=== PATIENT | female | born 1980 | race Caucasian/White ===

== ENCOUNTER 2022-05-11 16:41 | Inpatient (IN) | payer MEDICARE, MEDICAID, SELFPAY ==
[2022-05-11] VITALS (15 sets, daily range): BP systolic 141–168; BP diastolic 67–96; PULSE 57–145; RESP 14–16; O2SAT 99–100
--- NOTE | 2022-05-11 15:43 | US_ITS ---
WS: [id number] BIOPHYSICAL PROFILE AMNIOTIC FLUID HISTORY: 01/06 bpp in office COMPARISON: 04/09/2022 Cardiac activity: 150 bpm. Cervix: Obscured by the head. Placenta: Posterior, no previa or abruption. Placenta grade: 2 Parameters are as follows: Breathin Movement: 2 Tone: 2 Fluid volume: 2 Amniotic fluid index: 20 cm. Quality of this examination is significantly limited by maternal body habitus and late gestational ag e. There is increased low attenuation surrounding the abdomen and also the extremities. Sonogra pher was concerned this may be edema. I also believe this may be simply be fat. US/US OB BPP wo NST 76258 IMPRESSION: 1. Biophysical profile score: 8/8. 2. Normal amniotic fluid index. 3. Increased low-attenuation around the abdomen and the extremities. Favo r fat versus subcutaneous edema. Difficult evaluation due to maternal body habi tus and late gestational age.
--- NOTE | 2022-05-11 16:47 | P.HP_ITS ---
Providers/Chief Complaint Admitting Physician: Brennen Light MD Chief Complaint: BPP 2 sent from office HPI DATACAP DEVELOPER History of Present Illness Genny Gonsalez is a 41 year old 7 para 1-0-5-0 female at 36 weeks EGA female with type 2 diabetes who presented to our office for a scheduled biophysical profile. The was noted to have a 2 out of 8 biophysical profile, but was also noted to have some edema of the extremities. In the hospital, an NST was performed which found heart tones with a baseline of 140s to 150 with good long-term and short-term variability. With no significant dec elerations were noted. With Bronson accelerations noted. An ultrasound was performed at the hospital which demonstrated an 8 out of 8 biophysical profile, but the respiratory care technician noted that other than 1 brief moment, the baby would have had a 2 out of 8 biophysical profile. Possible edema was also noted on the ultrasound. Review of Systems General: Reports: 10 or more systems reviewed and unremarkable except in HPI and below Const: Reports: fatigue; Denies: fever(s) Eyes: Denies: change in vision Card: Denies: chest pain Musc: Reports: back pain Jose D/Lymph: Denies: easy bruising Medications/Allergies Allergies Allergy/AdvReac Type Severity Reaction Status Date / Time hydrocodone Allergy ALGY-Rash Verified 05/11/22 17:05 NSAIDS (Non-Steroidal AdvReac Mild ALGY-Rash Verified 05/11/22 17:05 Anti-Inflamma tape medical Allergy ALGY-Rash Uncoded 05/11/22 17:05 Physical Exam Const: COMMON NORMALS: patient oriented x3 and alert HENMT: COMMON NORMALS: moist oral mucous membranes HEAD & SCALP: normal to inspection Chest: COMMONS NORMALS: normal inspection of the chest Resp: COMMON NORMALS: clear to auscultation bilaterally AUSCULTATION: clear to auscultation bilaterally Cardio: COMMON NORMALS: regular rate and regular rhythm RATE: regular rate RHYTHM: regular rhythm GI: INSPECTION: Yes normal to inspection and Yes other (Gravid) Extremity: COMMON NORMALS: negative for normal to inspection (Bilateral below the knee amputation) GENERAL: Yes edema (Trace) Neuro: COMMON NORMALS: patient oriented x3, moves all extremities and no sensory deficits noted SENSORIUM/ORIENTATION: Yes alert Psych: COMMON NORMALS: mental status grossly normal Skin: COMMON NORMALS: no rashes or lesions noted GENERAL SKIN EXAM: no rash es or lesions noted Data : 05/12/22 09:35 05/11/22 16:36 A&P Assessment and plan (1) H/O gastric sleeve: Status: Acute (2) History of below-knee amputation of both lower extremities: Status: Acute (3) Type 2 diabetes mellitus affecting , antepartum: Status: Acute (4) 36 weeks gestation of : Status: Acute (5) Edema of fetus: I discussed the case with maternal- medicine in [place], and given the concerning biophysical profile they felt that we should proceed with delivery here in [place] and transfer the baby as needed. Since the patient may have edema, it is unlikely vaginal delivery will be successful. We will proceed with a section prior to bring the baby in distress. Status: Acute Attestations Medical Necessity Statement*: Routine and post care. Coding Level of Care Code Acute Fuel Operator for Chg Fwd Exam Comprehensive Diagnoses H/O gastric sleeve Z90.3 History of below-knee amputation of both lower extremities Z89.511; Z89.512 Type 2 diabetes mellitus affecting , antepartum O24.119 36 weeks gestation of Z3A.36 Edema of fetus
[2022-05-11] MEDS: metoclopramide 5 mg/mL SDV 2 mL 10 MG IVP (16:48)
[2022-05-11] MEDS: citric acid-sodium citrate 30 mL UDC PO (16:49)
[2022-05-11] MEDS: famotidine 20 mg/2 mL INJ IVP (16:49)
[2022-05-11] MEDS: lactated ringers 1,000 ML 999 ML IV (16:49)
[2022-05-11 17:25] LABS: Basophils % 0.4 %; Eosinophils # 0.1 10^3/uL (0.0-0.8); Eosinophils % 1.3 %; Hematocrit 30.3 % (37.0-47.0); Hemoglobin 9.8 g/dL (11.5-15.3); Lymphocytes # 2.4 10^3/uL (0.8-4.8); Lymphocytes % 28.1 %; Mean Corpuscular HGB Conc 32.3 g/dL (30.0-36.0); Mean Corpuscular Hemoglobin 28.1 pg (28.0-34.0); Mean Corpuscular Volume 86.8 fl (81-99); Mean Platelet Volume 11.8 fL (7.4-10.4); Monocytes # 0.4 10^3/uL (0.2-0.9); Monocytes % 5.2 %; Neutrophils # 5.42 10^3/uL (1.8-7.7); Neutrophils % 64.4 %; Nucleated Red Blood Cells % 0 %; Platelet Count 201 10^3/cmm (130-400); Red Blood Count 3.49 10^6/uL (4.1-5.3); Red Cell Distribution Width 15.9 % (12.1-15.1); White Blood Count 8.4 10^3/uL (4.0-10.0)
[2022-05-11 17:28] LABS: Alanine Aminotransferase 10 U/L (0-33); Albumin Level 3.1 g/dL (3.5-5.2); Alkaline Phosphatase 113 IU/L (35-105); Anion Gap 16.9 (5-19); Aspartate Amino Transferase 17 U/L (0-32); Blood Urea Nitrogen 13 mg/dL (6-20); Calcium 8.5 mg/dL (8.5-10.5); Carbon Dioxide 20 mmol/L (22-29); Chloride 102 mmol/L (98-107); Globulin 3.5 g/dL (1.3-4.6); Glomerular Filtration Rate 110.7 mL/min (90-130); Glucose 156 mg/dL (65-115); Osmolality Calculated 283 mOsm/kg (285-295); Potassium 3.9 mmol/L (3.5-5.1); Sodium 135 mmol/L (136-145); Total Bilirubin 0.4 mg/dL (0.15-1.2); Total Protein 6.6 g/dL (6.6-8.7)
[2022-05-11 17:59] LABS: Slide Review Slide Review Perform
--- NOTE | 2022-05-11 18:56 | PM.NBADM ---
[place] Information [place] information: Delivery Date: 05/11/22 Score Comment: 8 and 9 Other Information: This is a 36 weeks gestation female born to a 41-year-old via primary section for BPP 01/06. The was complicated by uncontrolled DM II, AMA, and polyhydramnios. The infant had spontaneous cry at with good color and tone. Apgars were 8 and 9. 6 mL of clear fluid were DeLee suctioned and the 's lung sounds continued to remain coarse with rhonchi. Chest PT was performed. At 11 minutes of life the infant's oxygen saturation was around 87% on room air and she began showing some slight subcostal retractions. She was started on CPAP and required titration to an FiO2 of 30% to get oxygen saturation to 93%. She continued to have coarse lung sounds. She was transferred to the nursery for further care. In the nursery she was placed on CPAP with a PEEP of 5 and FiO2 of 28%. She was breathing calm and comfortably with that setting. She had brief tremor (5sec) most notable in LLE and a blood sugar was checked and found to be 21. She was given 2 mL of glucose gel while IV access was obtained. She has been placed on D10 at 11 mL and hour. Blood culture, cbc w manual diff, cmp and chest xray have been ordered. [place] Exam General: healthy appearing, strong cry and Acrocyanosis present Head/Neck: normocephalic, anterior fontanelle normal, posterior fontanelle normal and face symmetric Eyes: spontaneous eye opening, eyes symmetric and red reflex present bilaterally ENT: external ears normal, palate normal and Normal oral and palatal mucosa present Chest: normal inspection of the chest Resp: breath sounds equal bilaterally, rhonchi and No grunting Cardio: regular rate & rhythm, No Murmur heart sound present, femoral pulses present and capillary refill normal GI: 3-vessel umbilical cord, Soft to palpation, non-distended, no organomegaly and no masses : normal external appearance Anus: patent anus Trunk/Spine: spine normal Extremites: negative hip click bilaterally, Ortolani and Toure signs negative bilaterally and moves all extremities Neuro/Reflexes: normal tone and normal reflexes Skin: no jaundice Coding Level of Care Code Acute Public Health Clinical Nurse Specialist for [facility] [place]
--- NOTE | 2022-05-11 18:57 | P.ANESASSM_ITS ---
Pre-Anesthetic Assessment Height/Weight: Resp 15 05/11/22 15:40 C/S Familial anesthetic complications: None Was Beta Leatha taken within 24 hours: N/A Was Clonidine taken within 24 hours: N/A Social No alcohol and No tobacco Exam alert, oriented x 3, clear to auscultation bilaterally and regular rate & rhythm Airway Submandibular: within normal limits Cervical ROM: within normal limits Mallampati: Class II Dentition: full Metabolic Diabetes Mellitus and Hyperlipidemia Anesthetic Plan ASA status: 2 Anesthesia: Regional (specify below) (SAB) Medications/Allergies Allergies Allergy/AdvReac Type Severity Reaction Status Date / Time hydrocodone Allergy ALGY-Rash Verified 05/11/22 17:05 NSAIDS (Non-Steroidal AdvReac Mild ALGY-Rash Verified 05/11/22 17:05 Anti-Inflamma tape medical Allergy ALGY-Rash Uncoded 05/11/22 17:05 [facility] Anesthesia Female Reproductive History : 7 Data Anesthesia : 05/11/22 16:36 05/11/22 16:36 Short CBC 05/11/22 Range/Units 16:36 WBC 8.4 (4.0-10.0) 10^3/uL Hgb 9.8 L (11.5-15.3) g/dL Hct 30.3 L (37.0-47.0) % MCV 86.8 (81-99) fl Plt Count 201 (130-400) 10^3/cmm Neut % (Auto) 64.4 % Neut # (Auto) 5.42 (1.8-7.7) 10^3/uL BMP 05/11/22 16:36 Sodium 135 L Potassium 3.9 Chloride 102 Carbon Dioxide 20 L BUN 13 Creatinine 0.6 Glucose 156 H Calcium 8.5 Liver Function 05/11/22 Range/Units 16:36 Total Bilirubin 0.4 (0.15-1.2) mg/dL AST 17 (0-32) U/L ALT 10 (0-33) U/L Alkaline Phosphatase 113 H (35-105) IU/L Albumin 3.1 L (3.5-5.2) g/dL Cardiac Studies: No Data to Display
--- NOTE | 2022-05-11 19:00 | ANE.PACU2 ---
Inpatient post-anesthesia follow up: Airway intact: Yes Vital signs: Temperature Pulse Rate Respiratory Rate 15 Blood Pressure Pulse Oximetry Oxygen Delivery Me thod Oxygen Flow Rate Fraction of Inspir ed Oxygen Hydration adequate: Yes Nausea and vomiting: No Pain level: 2 Mental status: Baseline
--- NOTE | 2022-05-11 19:10 | PC.NURSE ---
BP cuff had slipped down onto lower arm
--- NOTE | 2022-05-11 19:10 | PM.OP ---
Operative Report Date of procedure: May 11, 2022 Pre-op diagnosis: 1.. 41-year-old female at 36 weeks estimated gestational age 2. Type II diabetic patient. Biophysical profile 01/06 with possible M of abdomen and extremities Post-op diagnosis: Status post low transverse section Procedure done: Low transverse section Specimens removed/disposition: 1. Female with a weight of 7 pounds 0 ounces and Apgars of 8 and 9 2. Placenta with a three-vessel cord delivered intact Surgeon: Brennen Light Estimated blood loss (mL): 800 Complications: None Procedure: The patient was brought back to the operating room where she was prepped and draped in usual sterile fashion. Anesthesia was found to be adequate. A lower transverse skin incision was then made with a #10 blade. I then dissected down to the underlying subcutaneous tissue until arriving at the prerectal fascia. The fascia was then nicked with the scalpel bilaterally. The fascial incisions were then carried laterally with Hawkins scissors. Attention was then turned to the superior aspect of the incision which was grasped with kochers and tented up away from the underlying rectus abdominis muscles. The muscles were then dissected away from the fascia manually, and later with Hawkins scissors. Attention was then turned to the inferior aspect of the incision, and the fascia was dissected away from the underlying muscle in similar fashion. The rectus abdominis muscles were then spread manually. The peritoneum was entered manually. Excellent visualization of the uterus was noted. A lower transverse uterine incision was then made with a #10 blade. Upon arriving at the intrauterine cavity, the uterine incision was then extended manually. The infant was noted to be in vertex position. The baby was delivered without difficulty from a vertex position. There was no meconium. There was no nuchal cord. The cord was cut and clamped. The baby was then handed to the waiting nurse and Dr. Motley The placenta was removed intact. The uterus was externalized. The intrauterine cavity was cleansed of any remaining debris. The uterine incision was reapproximated in 2 layers. The first layer was performed with 0 Vicryl in a running locked stitch. The second layer was an imbricating stitch also using 0 Vicryl. The uterus was replaced into the abdomen. The peritoneum was then irrigated with warm saline. I reexamined the uterine incision and found it to be hemostatic. The rectus abdominis muscles were then reapproximated using 0 Vicryl in a running stitch. The fascia was then reapproximated using 0 Vicryl in running stitch. The subcutaneous tissue was reapproximated using 0 Vicryl in a running stitch. The skin was reapproximated using a running subcuticular stitch with 4-0 Vicryl on a Jesu needle.. Steri-Strips were placed. A sterile dressing was placed. All counts were correct x2. Both the mother and baby were in stable condition.
--- NOTE | 2022-05-11 19:15 | PC.NURSE ---
Baby in nursery
[2022-05-11 20:13] LABS: Glucose Point of Care 136 mg/dL (70-110)
[2022-05-11] MEDS: oxyCODONE-APAP 5-325 mg Tablet PO (20:53)
[2022-05-11] MEDS: acetaminophen 325 mg Tablet 650 MG PO (21:37)
[2022-05-11] MEDS: dextrose 5%-lactated ringers 1,000 ML 125 ML IV (23:15)
[2022-05-11 23:26] LABS: Glucose Point of Care 82 mg/dL (70-110)
[2022-05-12] VITALS (8 sets, daily range): BP systolic 113–143; BP diastolic 58–71; PULSE 69–95; RESP 16–18; TEMP 37.2; O2SAT 96–99
[2022-05-12] MEDS: diphenhydrAMINE 50 mg/mL SDV 1mL 25 MG IVP ×3 (01:01→11:48)
[2022-05-12] MEDS: oxyCODONE-APAP 5-325 mg Tablet PO ×3 (02:07→17:02)
--- NOTE | 2022-05-12 07:29 | PM.OBGYPN ---
MANAGEMENT ANALYST Subjective Subjective: Interval history: The patient has had a good night. Because she is a double amputee, she uses her core muscles and her rectus abdominis muscles more to move around. Because of the surgery, and the resulting pain, she has had a very difficult time getting around. She has passed flatus. Her bleeding has been within normal limits. Her CBC has not returned yet. Her blood sugars have been appropriate. There have been no other concerns. Labor: Amniotic Membrane Status: Intact Contraction Pattern: Absent Vitals/I&O/Wt Last Vital Signs Pulse 71 05/12/22 01:00 Resp 16 05/12/22 02:07 BP 141/68 05/12/22 01:00 Pulse Ox 99 05/12/22 02:07 05/11/22 05/12/22 05/12/22 22:59 06:59 14:59 Intake Total 447.917 / 447.917 Balance 447.917 / 447.917 Weight last 48 hrs Weight 273 lb Physical Exam Narrative: She is in no acute distress Lungs are clear auscultation bilaterally Her heart has a regular rate and rhythm Her fundus is below the umbilicus and firm Her dressing is clean, dry and intact Urinary Catheter Management: Zhu: Cath Placed During This Visit: yes Urinary Catheter Date of Insertion: 05/11/22 Urinary Catheter Time of Insertion: 17:40 Data : 05/11/22 16:36 05/11/22 16:36 Other data: CBC is pending. A&P Assessment and plan (1) Pre-existing type 2 diabetes mellitus during with complication, delivered: I have cut her Lantus in half due to her n.p.o. status. She is on a sliding scale. We would advance her diet due to passing flatus. Status: Acute (2) 36 weeks gestation of : Status: Acute (3) Status post : Routine post care. Status: Acute (4) History of below-knee amputation of both lower extremities: We will get PT to help her know how to transfer to her wheelchair so that she can with her baby and tilted to the nursery. Status: Acute Attestations Medical Necessity Statement*: Post care. I anticipate she will be here at least 2 more midnights and due to her type 2 diabetes as well as her double amputee status. Coding Level of Care Code Acute Pile Driver Operator Helper for Chg Fwd Diagnoses Pre-existing type 2 diabetes mellitus during with complication, delivered O24.13 36 weeks gestation of Z3A.36 Status post Z98.891 History of below-knee amputation of both lower extremities Z89.511; Z89.512
[2022-05-12] MEDS: prenatal vitamin Capsule 1 CAP PO (09:18)
[2022-05-12] MEDS: ferrous sulfate EC 325 mg Tablet PO ×2 (09:19→19:40)
[2022-05-12] MEDS: docusate sodium 100 mg Capsule PO ×2 (09:19→19:40)
[2022-05-12 09:25] LABS: Glucose Point of Care 82 mg/dL (70-110)
[2022-05-12 10:13] LABS: Hematocrit 27.2 % (37.0-47.0); Hemoglobin 8.8 g/dL (11.5-15.3); Mean Corpuscular HGB Conc 32.4 g/dL (30.0-36.0); Mean Corpuscular Hemoglobin 28.6 pg (28.0-34.0); Mean Corpuscular Volume 88.3 fl (81-99); Mean Platelet Volume 10.2 fL (7.4-10.4); Platelet Count 174 10^3/cmm (130-400); Red Blood Count 3.08 10^6/uL (4.1-5.3); White Blood Count 7.1 10^3/uL (4.0-10.0)
--- NOTE | 2022-05-12 12:06 | PC.NURSE ---
Abd binder place on patient at this time. Patient attempted to transfer to wheelchair and got to the side of the bed and stated her skin was pinching and she was in pain and wanted to try again later.
[2022-05-12 13:11] LABS: Glucose Point of Care 79 mg/dL (70-110)
[2022-05-12 17:16] LABS: Glucose Point of Care 71 mg/dL (70-110)
[2022-05-12] MEDS: diphenhydrAMINE 25 mg Capsule PO (19:40)
[2022-05-13] MEDS: insulin lispro 100 unit/1 mL SUBCUT ×3 (00:04→21:03)
[2022-05-13 02:50] LABS: Glucose Point of Care 219 mg/dL (70-110)
[2022-05-13] MEDS: acetaminophen 325 mg Tablet 650 MG PO ×3 (02:52→20:46)
[2022-05-13 04:00] VITALS: BP 125/76; PULSE 94; TEMP 36.7; O2SAT 97
--- NOTE | 2022-05-13 07:15 | P.PN_ITS ---
GEODETIC TECHNICIAN Subjective Subjective: Interval history: The patient is continuing to make progress. She passed gas and has had a regular diet for the last 24 hours. We are still working on managing her pain as she has not tolerated some of her medications. She also uses her core including her rectus abdominis muscles much more because of her amputations. As result the pain from the surgery has had a big impact on her ability to be mobile. She is continuing to attempt to breast-feed. There have been no other concerns. Labor: Amniotic Membrane Status: Intact Contraction Pattern: Absent Vitals/I&O/Wt Last Vital Signs Temp 99.0 F 05/12/22 16:18 Pulse 95 05/12/22 20:00 Resp 17 05/12/22 20:00 BP 131/66 05/12/22 20:00 Pulse Ox 96 05/12/22 20:00 05/12/22 05/13/22 05/13/22 22:59 06:59 14:59 Output Total 1200 / 2100 Balance -1200 / -2100 Weight last 48 hrs Weight 273 lb Physical Exam Narrative: She is in no acute distress Lungs are clear auscultation bilaterally Her heart has a regular rate and rhythm Her fundus is below the umbilicus and firm Her incision is clean, dry and intact Urinary Catheter Management: Zhu: Cath Placed During This Visit: yes Reason for Continuing Indwelling Catheter: Other Urinary Catheter Date of Insertion: 05/11/22 Urinary Catheter Time of Insertion: 17:40 Data : 05/12/22 09:35 05/11/22 16:36 A&P Assessment and plan (1) History of below-knee amputation of both lower extremities: Status: Acute (2) Status post : We will continue for care. Due to her double amputation status, she is going to require a longer recovery period in the hospital. I anticipate she will require 1 or 2 more night stay in the hospital. Status: Acute (3) Pre-existing type 2 diabetes mellitus during with complication, delivered: Her blood sugars were borderline low yesterday. They have now increased and we will get her started on Lantus again. Status: Acute (4) 36 weeks gestation of : Status: Acute Attestations Medical Necessity Statement*: I anticipate she will require 1-2 more night stay in the hospital depending on how she is able to manage both her diabetes as well as her mobilization given her double amputation status. Coding Level of Care Code Acute Seed Cleaning Machine Operator for Chg Fwd Diagnoses History of below-knee amputation of both lower extremities Z89.511; Z89.512 Status post Z98.891 Pre-existing type 2 diabetes mellitus during with complication, delivered O24.13 36 weeks gestation of Z3A.36
[2022-05-13 07:45] LABS: Glucose Point of Care 138 mg/dL (70-110)
[2022-05-13] MEDS: ferrous sulfate EC 325 mg Tablet PO ×2 (10:28→18:15)
[2022-05-13] MEDS: prenatal vitamin Capsule 1 CAP PO (10:29)
[2022-05-13] MEDS: docusate sodium 100 mg Capsule PO ×2 (10:29→18:14)
[2022-05-13 10:34] VITALS: BP 120/64; PULSE 87; TEMP 36.8; O2SAT 97
[2022-05-13 11:44] LABS: Glucose Point of Care 245 mg/dL (70-110)
[2022-05-13 17:10] LABS: Glucose Point of Care 159 mg/dL (70-110)
[2022-05-13] MEDS: escitalopram 10 mg Tablet 20 MG PO (18:14)
[2022-05-13] MEDS: insulin glargine 100 units/1 mL 10 UNIT SUBCUT (18:14)
[2022-05-13 22:02] LABS: Glucose Point of Care 264 mg/dL (70-110)
[2022-05-13 23:27] VITALS: BP 134/67; PULSE 98; RESP 16; TEMP 36.9; O2SAT 96
[2022-05-14 04:15] VITALS: BP 124/70; PULSE 91; RESP 17; TEMP 37.1; O2SAT 91
--- NOTE | 2022-05-14 07:12 | P.PN_ITS ---
BOOK OR SCRIPT EDITOR Subjective Subjective: Interval history: The patient had difficulty with her pain medication yesterday causing itching. We change it to morphine, but the patient was concerned enough about itching that she has chosen not to use any pain medication besides Tylenol at this point. Urine has been somewhat concentrated, and we are encouraging her to drink more often. She is moving around better. Her bleeding has been within normal limits. Her blood sugars have been going up. We have restarted her Lantus at 10 units twice daily. She has decided to stay away from any pain medication because of her concern about itching. She is becoming more mobile but still requires assistance from the nurses for some of her ADLs. She continues to pump breastmilk. Labor: Amniotic Membrane Status: Intact Contraction Pattern: Absent Vitals/I&O/Wt Last Vital Signs Temp 98.8 F 05/14/22 04:15 Pulse 91 05/14/22 04:15 Resp 17 05/14/22 04:15 BP 124/70 05/14/22 04:15 Pulse Ox 91 05/14/22 04:15 05/13/22 05/14/22 05/14/22 22:59 06:59 14:59 Output Total 600 / 600 Balance -600 / -600 Physical Exam Narrative: She is in no acute distress Lungs are clear auscultation bilaterally Her heart has a regular rate and rhythm Her fundus is below the umbilicus and firm Her incision is clean, dry and intact Her extremities have trace edema Urinary Catheter Management: Zhu: Cath Placed During This Visit: yes, but has since been removed by the nurse Reason for Continuing Indwelling Catheter: Other Urinary Catheter Date of Insertion: 05/11/22 Urinary Catheter Time of Insertion: 17:40 Date Urinary Catheter Removed: 05/13/22 Time Urinary Catheter Discontinued: 08:04 Data : 05/12/22 09:35 05/11/22 16:36 A&P Assessment and plan (1) Status post : Overall, the patient is progressing well. Because of her underlying comorbidities, in particular her bilateral lower extremity amputation, she is requiring more assistance than most patients. Regardless, it is likely she will be discharged tomorrow. Status: Acute (2) History of below-knee amputation of both lower extremities: Because of her lack of mobility, I want to have her in the hospital for at least 1 more day we can encourage her to be active, and so that the nurses can also assist her she is much more dependent on her core strength than the average post patient. Status: Acute (3) 36 weeks gestation of : Status: Acute (4) Type 2 diabetes mellitus affecting , antepartum: Her blood sugars have been going up quite a bit. I explained to her the importance of managing her blood sugars to reduce her risk of infection and have proper healing of her incision. Status: Acute Attestations Medical Necessity Statement*: Due to the patient's comorbidities including poorly controlled type 2 diabetes, and below the knee amputations, the patient requires more intensive care, and will need a least 1 more night stay in the hospital for adequate postoperative care. Coding Level of Care Code Acute Telecommunications Switch Technician for [employer] Diagnoses Status post Z98.891 History of below-knee amputation of both lower extremities Z89.511; Z89.512 36 weeks gestation of Z3A.36 Type 2 diabetes mellitus affecting , antepartum O24.119
[2022-05-14] MEDS: acetaminophen 325 mg Tablet 650 MG PO ×2 (07:22→15:16)
[2022-05-14 07:27] LABS: Glucose Point of Care 157 mg/dL (70-110)
[2022-05-14] MEDS: prenatal vitamin Capsule 1 CAP PO (07:56)
[2022-05-14] MEDS: ferrous sulfate EC 325 mg Tablet PO ×2 (07:56→17:40)
[2022-05-14] MEDS: insulin lispro 100 unit/1 mL SUBCUT ×3 (07:57→17:40)
[2022-05-14] MEDS: escitalopram 10 mg Tablet 20 MG PO (09:01)
[2022-05-14] MEDS: insulin glargine 100 units/1 mL 10 UNIT SUBCUT ×2 (09:01→18:26)
[2022-05-14] MEDS: docusate sodium 100 mg Capsule PO ×2 (09:01→17:39)
[2022-05-14 10:30] VITALS: BP 122/71; PULSE 72; RESP 18; O2SAT 99
[2022-05-14 11:02] LABS: Basophils % 0.4 %; Eosinophils # 0.2 10^3/uL (0.0-0.8); Eosinophils % 4.5 %; Hematocrit 26.2 % (37.0-47.0); Hemoglobin 8.5 g/dL (11.5-15.3); Lymphocytes # 1.3 10^3/uL (0.8-4.8); Lymphocytes % 24.2 %; Mean Corpuscular HGB Conc 32.4 g/dL (30.0-36.0); Mean Corpuscular Hemoglobin 28.2 pg (28.0-34.0); Mean Platelet Volume 9.9 fL (7.4-10.4); Monocytes # 0.3 10^3/uL (0.2-0.9); Neutrophils % 64.3 %; Nucleated Red Blood Cells % 0 %; Platelet Count 202 10^3/cmm (130-400); Red Blood Count 3.01 10^6/uL (4.1-5.3); White Blood Count 5.3 10^3/uL (4.0-10.0)
[2022-05-14 11:24] LABS: Anion Gap 13.3 (5-19); Blood Urea Nitrogen 12 mg/dL (6-20); Calcium 8.7 mg/dL (8.5-10.5); Carbon Dioxide 25 mmol/L (22-29); Chloride 101 mmol/L (98-107); Glomerular Filtration Rate 92.7 mL/min (90-130); Glucose 210 mg/dL (65-115); Osmolality Calculated 286 mOsm/kg (285-295); Potassium 4.3 mmol/L (3.5-5.1); Sodium 135 mmol/L (136-145)
[2022-05-14 11:29] LABS: Glucose Point of Care 208 mg/dL (70-110)
[2022-05-14] MEDS: diphenhydrAMINE 25 mg Capsule PO (15:16)
[2022-05-14 17:00] VITALS: BP 122/76; PULSE 70; RESP 18; O2SAT 99
[2022-05-14 17:31] LABS: Glucose Point of Care 224 mg/dL (70-110)
[2022-05-14 22:00] VITALS: BP 124/61; PULSE 99; RESP 16; O2SAT 98
[2022-05-15] MEDS: acetaminophen 325 mg Tablet 650 MG PO ×2 (01:01→08:03)
[2022-05-15 04:13] VITALS: BP 148/92; PULSE 80; RESP 16; O2SAT 97
--- NOTE | 2022-05-15 07:41 | P.DS_ITS ---
Discharge Providers BALLER TENDER Date of Admission: 05/11/22 16:41 Date of Discharge: 05/15/22 Attending Provider at Admission: Brennen Light MD Attending Provider at Discharge: Brennen Light MD Diagnoses at Discharge Discharge Diagnosis (1) Status post : Status: Acute (2) History of below-knee amputation of both lower extremities: Status: Acute (3) 36 weeks gestation of : Status: Acute (4) Type 2 diabetes mellitus affecting , antepartum: Status: Acute Reason for Visit Reason for Visit: BPP 01/06 sent from office Hospital Course Hospital Course The patient presented to the hospital because of a low biophysical profile. After discussion with maternal medicine at [facility] we elected to proceed with a section. The was unremarkable. The patient's course was notable for the challenges that presented themselves due to the patient's bilateral amputation status. She also had problems with itching of several of the pain medications that we tried. As result she elected not to have any pain medication beyond Tylenol. In addition we continue to manage her as type 2 diabetes. Her blood sugars ranged from the mid 200s to below 100. She was eating a regular diet for several days. Her wound looked excellent throughout the hospital stay. Her bleeding was within normal limits. She is attempting to pump at this time with minimal success. Information Peripartum Data: Infant Delivery Method: Vaginal Physical Exam Narrative: She is in no acute distress Lungs are clear auscultation bilaterally Her heart has a regular rate and rhythm Her fundus is below the umbilicus and firm Her incision is clean, dry and intact Urinary Catheter Management: Zhu: Cath Placed During This Visit: yes, but has since been removed by the nurse Reason for Continuing Indwelling Catheter: Other Urinary Catheter Date of Insertion: 05/11/22 Urinary Catheter Time of Insertion: 17:40 Date Urinary Catheter Removed: 05/13/22 Time Urinary Catheter Discontinued: 08:04 Discharge Data Studies Completed and Pending Completed Studies During Hospitalization Category Date Time Status US OB BPP NST 29933 Stat Ultrasound 05/11/22 15:43 Completed Radiology Impressions Obstetrics US/Biophysical Profile 05/11/22 15:43 IMPRESSION: 1. Biophysical profile score: 8/8. 2. Normal amniotic fluid index. 3. Increased low-attenuation around the abdomen and the extremities. Favor fat versus subcutaneous edema. Difficult evaluation due to maternal body habitus and late gestational age. Laboratory Results WBC 5.3 10^3/uL (4.0-10.0) 05/14/22 10:55 RBC 3.01 10^6/uL (4.1-5.3) L 05/14/22 10:55 Hgb 8.5 g/dL (11.5-15.3) L 05/14/22 10:55 Hct 26.2 % (37.0-47.0) L 05/14/22 10:55 MCV 87.0 fl (81-99) 05/14/22 10:55 MCH 28.2 pg (28.0-34.0) 05/14/22 10:55 MCHC 32.4 g/dL (30.0-36.0) 05/14/22 10:55 RDW 16.0 % (12.1-15.1) H 05/14/22 10:55 Plt Count 202 10^3/cmm (130-400) 05/14/22 10:55 MPV 9.9 fL (7.4-10.4) 05/14/22 10:55 Neut % (Auto) 64.3 % 05/14/22 10:55 Lymph % (Auto) 24.2 % 05/14/22 10:55 [place] % (Auto) 6.0 % 05/14/22 10:55 Eos % (Auto) 4.5 % 05/14/22 10:55 Baso % (Auto) 0.4 % 05/14/22 10:55 Neut # (Auto) 3.40 10^3/uL (1.8-7.7) 05/14/22 10:55 Lymph # (Auto) 1.3 10^3/uL (0.8-4.8) 05/14/22 10:55 [place] # (Auto) 0.3 10^3/uL (0.2-0.9) 05/14/22 10:55 Eos # (Auto) 0.2 10^3/uL (0.0-0.8) 05/14/22 10:55 Baso # (Auto) 0.0 10^3/uL (0.0-0.1) 05/14/22 10:55 Nucleated RBC % (auto) 0 % 05/14/22 10:55 Nucleated RBCs # 0.0 /100WBC 05/14/22 10:55 Sodium 135 mmol/L (136-145) L 05/14/22 10:55 Potassium 4.3 mmol/L (3.5-5.1) 05/14/22 10:55 Chloride 101 mmol/L (98-107) 05/14/22 10:55 Carbon Dioxide 25 mmol/L (22-29) 05/14/22 10:55 Anion Gap 13.3 (5-19) 05/14/22 10:55 BUN 12 mg/dL (6-20) 05/14/22 10:55 Creatinine 0.7 mg/dL (0.5-0.9) 05/14/22 10:55 GFR Calculation 92.7 mL/min (90-130) 05/14/22 10:55 Glucose 210 mg/dL (65-115) H 05/14/22 10:55 POC Glucose 224 mg/dL (70-110) H 05/14/22 17:11 Calculated Osmolality 286 mOsm/kg (285-295) 05/14/22 10:55 Calcium 8.7 mg/dL (8.5-10.5) 05/14/22 10:55 Total Bilirubin 0.4 mg/dL (0.15-1.2) 05/11/22 16:36 AST 17 U/L (0-32) 05/11/22 16:36 ALT 10 U/L (0-33) 05/11/22 16:36 Alkaline Phosphatase 113 IU/L (35-105) H 05/11/22 16:36 Total Protein 6.6 g/dL (6.6-8.7) 05/11/22 16:36 Albumin 3.1 g/dL (3.5-5.2) L 05/11/22 16:36 Globulin 3.5 g/dL (1.3-4.6) 05/11/22 16:36 Vitals Last Vital Signs Temp 98.8 F 05/14/22 04:15 Pulse 80 05/15/22 04:13 Resp 16 05/15/22 04:13 BP 148/92 05/15/22 04:13 Pulse Ox 97 05/15/22 04:13 Discharge Plan Discharge Patient Disposition: Home Condition: Stable Prescriptions: New acetaminophen 325 mg Tablet 650 mg PO Q6H PRN (Reason: Mild Pain or Temp >100.4) Qty: 100 0RF Lantus U-100 Insulin 100 unit/mL Solution 10 unit SUBCUT BID Qty: 1 0RF Humalog U-100 Insulin 100 unit/mL Solution 0 unit SUBCUT TIDWM Qty: 1 0RF escitalopram oxalate 10 mg Tablet 20 mg PO DAILY Qty: 100 1RF Discharge Orders: Discharge Order (Routine); Ordered 05/15/22 Ordered By: Brennen Light Discharge Diet: Diabetic Discharge Activity: Limit activity as instructed Patient Instructions: Depression (DC), Bleeding (DC), Preeclampsia and Eclampsia After Delivery (GEN), OB - Nadege/Tiesha, OB Discharge Report, OB Food/Drug Interaction Guide, OB Care at Home, Opioid Safety, OB Home Care Discharge Attestations BALLER TENDER Time Spent in Discharge Care*: greater than 30 min Coding Level of Care Code Acute Hotel Administrative Assistant for Chg Fwd Diagnoses Status post Z98.891 History of below-knee amputation of both lower extremities Z89.511; Z89.512 36 weeks gestation of Z3A.36 Type 2 diabetes mellitus affecting , antepartum O24.119
[2022-05-15] MEDS: ferrous sulfate EC 325 mg Tablet PO (07:49)
[2022-05-15] MEDS: docusate sodium 100 mg Capsule PO (07:49)
[2022-05-15] MEDS: prenatal vitamin Capsule 1 CAP PO (07:49)
[2022-05-15 07:54] LABS: Glucose Point of Care 138 mg/dL (70-110)
[2022-05-15] MEDS: insulin glargine 100 units/1 mL 10 UNIT SUBCUT (08:35)
[2022-05-15 09:41] VITALS: BP 142/69; PULSE 91; RESP 15; TEMP 36.7; O2SAT 97
== END 2022-05-15 09:31 | disposition home or self-care (01) | DRG 788 ==
LOC: OPOB 16:41 → OBGYN 16:41
PROVIDERS: Admitting Provider Family Medicine; Visit Provider Family Medicine
PROC: 10D00Z1 Extraction of Products of Conception, Low, Open Approach (ICD-10-PCS; CPT 59514; principal; 2022-05-11 17:50)
DX: O24.12 Pre-existing type 2 diabetes mellitus, in childbirth (principal); Z3A.36 36 weeks gestation of pregnancy; Z37.0 Single live birth; Z98.84 Bariatric surgery status; Z89.512 Acquired absence of left leg below knee; Z89.511 Acquired absence of right leg below knee
CPT/HCPCS: 12345; 36416; 51702; 59409; 76819; 80048; 80053; 82962; 85025; 85027; 96372; 96374; 97530; J1200; J1815 ×2; J2274; J2370; J2405; J2765; J3490

== ENCOUNTER 2022-10-29 06:00 | Outpatient (RCR) | payer MEDICARE, MEDICAID, SELFPAY | END 2022-11-03 14:47 | disposition home or self-care (01) | LOC: SOT 06:00 | PROVIDERS: Visit Provider Nurse Practitioner Family | DX: Z89.511 Acquired absence of right leg below knee (principal); Z89.512 Acquired absence of left leg below knee | CPT/HCPCS: 97167; 97530 ==